=== PATIENT | female | born 2000 | race Two or more races ===

== ENCOUNTER 2022-09-16 22:25 | Emergency (ER) | payer MEDICAID ==
[~2022-09-16] VITALS: Ht 152.4 cm; Wt 68.0 kg
[2022-09-17 02:05] LABS: BILIRUBIN,URINE NEGATIVE (NEGATIVE); COLOR,URINE YELLOW (YELLOW); LEUKOCYTE ESTERASE ,URINE NEGATIVE (NEGATIVE); NITRITE, URINE NEGATIVE (NEGATIVE); PROTEIN,URINE NEGATIVE (NEGATIVE); UGLUCOSE NEGATIVE (NEGATIVE); UROBILINOGEN,URINE 0.2 EU/dL (0.2)
[2022-09-17 02:16] LABS: BACTERIA,URINE Rare /HPF (None Seen); RBC,URINE 0-2 /HPF (0-2); SQUAMOUS EPITHELIAL CELL,UR Few /HPF (None Seen); WBC,URINE 0-2 /HPF (0-3)
[2022-09-17 03:48] VITALS: BP 121/73
== END 2022-09-17 03:49 | disposition left against medical advice (07) ==
LOC: ER 22:26
DX: O26.892 Other specified pregnancy related conditions, second trimester (principal); R10.2 Pelvic and perineal pain; Z3A.21 21 weeks gestation of pregnancy
CPT/HCPCS: 76700-TC; 76805-TC; 81001